=== PATIENT | female | born 1990 | race African-American/Black ===

== ENCOUNTER 2020-02-13 15:29 | Emergency (ER) | payer SELFPAY ==
[~2020-02-13] VITALS: Ht 167.6 cm; Wt 71.7 kg
--- NOTE | 2020-02-13 15:40 | NUR ---
ED Nurse Note: Pt ambulated to ED due to hives and itching on her face, arms and back x 2 days. denies SOB. States she [place]. VSS, on RA, afebrile on triage; awaiting for ERPA.
[2020-02-13 15:53] VITALS: BP 132/96
[2020-02-13] MEDS ORDERED: Solu-MEDROL 125mg Inj IM ONE (16:00)
--- NOTE | 2020-02-13 16:01 | Emergency Room Report ---
History of Present Illness General Chief Complaint: Allergies Source: Patient Present Illness HPI 29-year-old female presents to the emergency department complaining of itchy rash to the bilateral hands, anterior chest, neck and face as well as her back x3 days. Patient denies history of allergies. Patient states the only thing different lately is she went on a hike 3 to 4 days ago. She states she has been taking Benadryl and applying cortisone cream with no relief of her symptoms. Pt. denies fevers, chills or swollen tender lymph nodes. Denies lesions/rashes elsewhere on the body. Denies new medications or body washes or creams. Denies swelling of the lips, tongue , throat or airway. Denies wheezing , or shortness of breath. Denies recent travel, recent illness or ill contacts. denies blisters, oral lesions, or sloughing of the skin. She denies or suspicion of . She reports her LMP was 12 days ago. Allergies: Coded Allergies: No Known Allergies (Unverified , 02/13/20) COVID-19 Screening Contact w/high risk pt: No Recent Travel to affected area: No Experienced COVID-19 symptoms?: No Patient History Past Medical History: see triage record Past Surgical History: none Pertinent Family History: none Last Menstrual Period: 02/01/20 Now: No Reviewed Nursing Documentation: PMH: Agreed; PSxH: Agreed Nursing Documentation-PMH Past Medical History: No History, Except For Review of Systems All Other Systems: negative except mentioned in HPI Physical Exam Vital Signs Date Time Temp Pulse Resp B/P (MAP) Pulse Ox O2 Delivery O2 Flow Rate FiO2 02/13/20 15:34 98.4 89 15 132/96 (108) 100 Room Air Sp02 EP Interpretation: reviewed, normal General Appearance: no apparent distress, alert, GCS 15, non-toxic Head: normocephalic, atraumatic Eyes: bilateral eye normal inspection, bilateral eye PERRL ENT: hearing grossly normal, no angioedema, normal voice, other - erythematous hives diffuse on the face-cheeks and nose. no oral mucosal involvement. NO swelling of the lips or tongue. Neck: full range of motion, other - no stridor Respiratory: chest non-tender, lungs clear, normal breath sounds, no respiratory distress, no accessory muscle use, no wheezing, speaking full sentences Cardiovascular #1: regular rate, rhythm Musculoskeletal: normal range of motion, gait/station normal, non-tender Neurologic: alert, motor strength/tone normal, oriented x3, sensory intact, responsive, speech normal Psychiatric: judgement/insight normal Skin: rash - erythematous hives diffuse on the dorsum of the hands bilaterally , the anterior chest, the face-cheeks and nose. no oral mucosal involvement. NO swelling of the lips or tongue. No blisters or vesicles. No sloughing of the skin. No involvement of the palmar surfaces or soles of the feet Lymphatic: no adenopathy Medical Decision Making PA Attestation Dr. Perez is my supervising Physician whom patient management has been discussed with. Diagnostic Impression: Primary Impression: Rash and nonspecific skin eruption ER Course 29-year-old female presents to the emergency department complaining of itchy rash to the bilateral hands, anterior chest, neck and face as well as her back x3 days. Patient denies history of allergies. Patient states the only thing different lately is she went on a hike 3 to 4 days ago. She states she has been taking Benadryl and applying cortisone cream with no relief of her symptoms. Pt. denies fevers, chills or swollen tender lymph nodes. Denies lesions/rashes elsewhere on the body. Denies new medications or body washes or creams. Denies swelling of the lips, tongue , throat or airway. Denies wheezing , or shortness of breath. Denies recent travel, recent illness or ill contacts. denies blisters, oral lesions, or sloughing of the skin. She denies or suspicion of . She reports her LMP was 12 days ago. Ddx considered but are not limited to cellulitis, allergic reaction, angio edema , abscess Vital signs: are WNL, pt. is afebrile H&PE are most consistent with nonspecific allergic reaction-no evidence to suggest acute impending airway compromise or anaphylaxis. ORDERS: none required at this time, the diagnosis is clinical ED INTERVENTIONS: IM solumedrol, PO Pepcid. DISCHARGE: At this time pt. is stable for d/c to home. Will provide printed patient care instructions, and any necessary prescriptions. Care plan and follow up instructions have been discussed with the patient prior to discharge. Last Vital Signs Date Time Temp Pulse Resp B/P (MAP) Pulse Ox O2 Delivery O2 Flow Rate FiO2 02/13/20 15:53 98.4 81 15 132/96 100 Room Air Disposition: HOME, SELF-CARE Condition: Stable Scripts Prednisone* (PREDNISONE*) 20 Mg Tablet 40 MG ORAL DAILY for 5 Days, #10 TAB Prov: Amarilys Acosta 02/13/20 Diphenhydramine Hcl (BENADRYL ALLERGY) 25 Mg Tablet 25-50 MG PO Q6HR, #30 TAB Prov: Amarilys Acosta 02/13/20 Referrals: [facility] + [facility] Patient Instructions: Allergies Additional Instructions: Take medications as directed. Do not drink alcohol, drive, or operate heavy machinery while taking Benadryl as this may cause drowsiness. Follow up with a Primary Care Provider in 3-5 days for DERMATOLOGY REFERRAL , even if your symptoms have resolved. --Please review list of primary care clinics, if you do not already have a primary care provider Return sooner to ED if new symptoms occur, or current symptoms become worse. - Please note that this Emergency Department Report was dictated using [employer] technology software, occasionally this can lead to erroneous entry secondary to interpretation by the dictation equipment. Amarilys Acosta Feb 13, 2020 16:01
[2020-02-13] MEDS ORDERED: BENADRYL ALLERG25 M1 PO (16:04)
[2020-02-13] MEDS ORDERED: PREDNISONE20 MG ORAL (16:04)
[2020-02-13 16:08] VITALS: BP 130/94
--- NOTE | 2020-02-13 16:08 | NUR ---
ER DISCHARGE NOTE: Patient is cleared to be discharged per ERMD, pt is aox4, on room air, with stable vital signs. pt was given dc and prescription instructions, pt was able to verbalize understanding, pt id band and iv site removed without complications. pt is able to ambulate with steady gait. pt took all belongings.
== END 2020-02-13 16:08 | disposition home or self-care (01) ==
LOC: EMR 16:05
DX: R21 Rash and other nonspecific skin eruption (principal)
CPT/HCPCS: 96372; 99283; J2930